=== PATIENT | male | born 1960 | race Caucasian/White ===

== ENCOUNTER 2024-08-13 10:18 | Outpatient (CLI) | payer MEDICARE, MEDICAID ==
--- NOTE | 2024-08-13 12:22 | RADIOLOGY REPORT ---
DI CHEST,TWO VIEWS CLINICAL HISTORY: SCREENING FOR TUBERCULOSIS COMPARISON: None TECHNIQUE: Frontal and lateral view of the chest was obtained FINDINGS: Lines and Tubes: None Lungs: No focal consolidation. Pleura: No effusion. No pneumothorax. Cardiomediastinal contours: Unremarkable Bones: No acute osseous abnormality. IMPRESSION: No acute cardiopulmonary disease. No evidence for active tuberculosis
== END 2024-08-13 23:59 | disposition home or self-care (01) ==
LOC: RAD 10:18
PROVIDERS: ATTEND Physician Assistant Medical
DX: Z11.1 Encounter for screening for respiratory tuberculosis (principal)
CPT/HCPCS: 71046

== ENCOUNTER 2024-10-01 09:25 | Outpatient (CLI) | payer MEDICARE, MEDICAID ==
--- NOTE | 2024-10-01 10:26 | RADIOLOGY REPORT ---
EXAM: DI LUMBAR SPINE COMPLTE HISTORY: BACK AND HIP PAIN COMPARISON: None TECHNIQUE: Five views of the lumbar spine were performed. FINDINGS: No fracture or listhesis of the lumbar spine. There is moderate degenerative disc disease and facet a rthropathy. The oblique films do not demonstrate spondylolysis. There is fecal retention in the colon . There may be a gallstone visualized in the right upper quadrant. IMPRESSION: 1. Degenerative changes of the lumbar spine without evidence of fracture. 2. Possible cholelithiasis.
== END 2024-10-01 23:59 | disposition home or self-care (01) ==
LOC: RAD 09:25
PROVIDERS: ATTEND Nurse Practitioner Family
DX: M47.816 Spondylosis without myelopathy or radiculopathy, lumbar region (principal); M54.9 Dorsalgia, unspecified
CPT/HCPCS: 72110